=== PATIENT | female | born 1960 | race African-American/Black ===

== ENCOUNTER 2019-09-05 17:29 | Emergency (ER) | payer BC ==
[~2019-09-05] VITALS: Ht 157.5 cm; Wt 66.0 kg
[2019-09-05] MEDS ORDERED: MAGNESIUM/ALUMINUM HYDROXIDE/SIMETHICONE 30ML UDC PO ONE (18:30)
[2019-09-05] MEDS ORDERED: VISCOUS LIDOCAINE 2% 15 ML UDC PO ONE (18:30)
[2019-09-05 18:52] LABS: EOSINOPHILS % 1.2 % (0.0-5.0); HEMATOCRIT. 41.5 % (36.0-48.0); LYMPHOCYTES % 46.4 % (20.0-50.0); MEAN CORPUSCULAR HEMOGLOBIN 30.9 pg (28.0-32.0); MEAN CORPUSCULAR VOLUME 91.4 fL (81.0-99.0); MEAN PLATELET VOLUME 8.4 fl (7.4-10.4); MONOCYTES % 7.5 % (2.0-8.0); NEUTROPHILS % 43.9 % (40.0-76.0); PLATELET 220 x1000/uL (130-400); RED BLOOD CELL COUNT 4.54 mill/uL (4.2-5.4); RED CELL DISTRIBUTION WIDTH 13.4 % (11.6-14.6)
[2019-09-05 18:58] LABS: CHLORIDE 107 mEq/L (98-107)
[2019-09-06 00:51] VITALS: BP 117/68
== END 2019-09-06 00:57 | disposition home or self-care (01) ==
LOC: ER 17:29
DX: K20.9 Esophagitis, unspecified (principal); R07.9 Chest pain, unspecified; R06.02 Shortness of breath; Z98.890 Other specified postprocedural states; Z88.0 Allergy status to penicillin; Z88.8 Allergy status to other drugs, medicaments and biological substances
CPT/HCPCS: 36415; 71045; 80053; 83880; 84484; 85025; 85379; 93005; 93971; 99285